=== PATIENT | male | born 1945 | race Caucasian/White ===

== ENCOUNTER 2018-01-24 10:46 | Inpatient (IN) | payer MEDICARE, OTHER ==
[2018-01-13 10:59] VITALS: BMI 29.0
--- NOTE | 2018-01-13 11:45 | PAT Medication Instructions ---
Service Date Jan 13, 2018. Current Home Medication List Allopurinol (Zyloprim), 100 MG PO QPM Ascorbic Acid (Vitamin C), 1 TAB PO QAM Aspirin (Aspirin Ec), 81 MG PO QPM Cholecalciferol (Vitamin D3), 1 TAB PO QAM Multivitamin (Multivitamin), 1 TAB PO QAM Medication Instructions For Your Scheduled Surgery - Hold the following medications the morning of surgery: Ascorbic Acid (Vitamin C), 1 TAB PO QAM Cholecalciferol (Vitamin D3), 1 TAB PO QAM Multivitamin (Multivitamin), 1 TAB PO QAM - Take the following medications as scheduled the night before surgery: Allopurinol (Zyloprim), 100 MG PO QPM Aspirin (Aspirin Ec), 81 MG PO QPM If you have any questions please call us at [phone] or [phone] or [phone]
[2018-01-13 12:29] LABS: BASO % 0.6 %; BASO ABS # 0.04 K/uL (0-0.2); EOS % 5.9 %; EOS ABS # 0.42 K/uL (0-0.5); HEMATOCRIT 41.5 % (42-52); HEMOGLOBIN 14.3 g/dL (14.0-18.0); IG# 0.01 K/uL (0.00-0.02); LYMPH ABS # 1.77 K/uL (1.2-3.4); MEAN CELL VOLUME 94.3 fL (80-100); MEAN CORPUSCULAR HEMOGLOBIN 32.5 pg (25-34); MEAN CORPUSCULAR HGB CONC 34.5 g/dl (32-36); MONO % 11.6 %; MONO ABS # 0.82 K/uL (0.11-0.59); NEUT % 56.8 %; NEUT ABS # 4.03 K/uL (1.4-6.5); PLATELET COUNT 262 K/uL (130-400); RED CELL DISTRIBUTION WIDTH CV 13.9 % (11.5-14.5); RED CELL DISTRIBUTION WIDTH SD 47.9 fL (36.4-46.3); WHITE BLOOD COUNT 7.09 K/uL (4.8-10.8)
[2018-01-13 12:42] LABS: INR 0.9 (0.9-1.1); PTT PATIENT 26.6 SECONDS (21.0-31.0)
[2018-01-13 13:06] LABS: HEMOGLOBIN A1C 6.1 % (4.5-5.6)
[2018-01-13 13:23] LABS: ALBUMIN 3.8 gm/dl (3.4-5.0); CALCIUM 9.7 mg/dl (8.5-10.1); CREATININE 3.94 mg/dl (0.60-1.40); POTASSIUM 4.8 mmol/L (3.5-5.1)
--- NOTE | 2018-01-19 14:18 | HISTORY & PHYSICAL EXAMINATION ---
DATE OF ADMISSION: 01/24/2018 CHIEF COMPLAINT: Right knee pain. HISTORY OF PRESENT ILLNESS: Mr. Johnson is a 72-year-old male who has a multiple year history of right knee pain. Patient had a partial knee replacement [address] Gordon. He has been complaining of increased pain over the last few months. His pain is now 10/10. He has pain with his daily activities. He has limited standing and walking tolerance. Pain is worse with weightbearing. The patient has had injections and bracing without relief. He is now scheduled for conversion to right total knee arthroplasty with Dr. Huntley. PAST MEDICAL HISTORY: Chronic kidney disease stage IV, history of TIA, acid reflux, history of gout. He denies heart disease, diabetes or DVT. PAST SURGICAL HISTORY: Right knee unicompartmental knee replacement and hernia repair. SOCIAL HISTORY: Patient denies alcohol or tobacco use. He lives in a 2-suraj home. He is and retired. FAMILY HISTORY: Negative for DVT. MEDICATIONS: Allopurinol 100 mg t.i.d., aspirin 81 mg daily, vitamin C 1000 mg, multivitamin, vitamin B complex, omega 3, ranitidine 150 mg b.i.d., TUMS 200 mg p.r.n. ALLERGIES: None. REVIEW OF SYSTEMS: See HPI. Ten other systems reviewed, all negative. PHYSICAL EXAMINATION: VITAL SIGNS: Height 5 foot 8, weight 192 pounds, BMI 29. GENERAL: This is a well developed, well nourished male who is alert and oriented x3. Mood and affect are appropriate. HEENT: Normocephalic, atraumatic. Mucous membranes are moist and intact. NECK: Supple without lymphadenopathy. HEART: Regular rate and rhythm without murmurs, rubs or gallops. LUNGS: Clear to auscultation without wheezes or rhonchi. ABDOMEN: Soft and nontender. Bowel sounds are equal and active. EXTREMITIES: No ecchymosis, redness or warmth. He has varus deformity. Range of motion is from 5-110 degrees. He has +2 laxity. He has a mild incision from previous surgery. He is neurovascularly intact with moderate effusion. X-RAY EXAMINATION: AP and lateral views show a unicompartmental knee replacement with likely aseptic loosening. IMPRESSION: Painful right unicompartmental knee replacement. PLAN: The patient will be admitted for a conversion to a right total knee arthroplasty. He is planning on outpatient PT upon discharge. The patient should not have anti-inflammatories due to his chronic kidney disease. He should have a medical consults during his inpatient hospital stay.
[2018-01-24] VITALS (8 sets, daily range): BP systolic 111–160; BP diastolic 72–98; PULSE 74–86; TEMP 36.2–37.1; O2SAT 93–95; Ht 172.7 cm; Wt 85.0 kg
[~2018-01-24] VITALS: Ht 172.7 cm; Wt 85.0 kg
[2018-01-24] MEDS: TRANEXAMIC ACID INJ 1,000 MG x 2 Bags IV SCH ×4 (06:30→12:22)
[~2018-01-24 10:46] MED LIST: ACETAMINOPHEN 500 MG TAB PO SCH; ALLO100T PO; ASCA500 PO; ASPI81TA28 PO; ATROPINE SULFATE 0.1 MG/ML 5ML SYR IV PRN; CEFAZOLIN 2000MG IV PUSH 15 ML IV SCH; CHOL1000 PO; CeleBREX 200 MG CAP PO SCH; DEXAMETHASONE 4 MG TAB PO SCH; EpHEDrine SULFATE INJ 50 MG/ML AMP IV PRN; FAMOTIDINE 20 MG TAB PO SCH; FENTANYL CITRATE INJ 50 MCG/1 ML 2 ML VIAL IV PRN; GABAPENTIN 300 MG CAP PO SCH; HYDROmorphone INJ 0.5 MG/0.5 ML SYR IV PRN; LABETALOL HCL IV 5 MG/ML 20ML IV PRN; MEPERIDINE HCL 25 MG/ML CARP IV PRN; METOCLOPRAMIDE HCL 10 MG TAB PO SCH; MULT-506 PO; ONDANSETRON INJ 2 MG/ML 2 ML VIAL IV PRN; ROPIVACAINE 5MG/ML 30 ML 150 MG, BUPIVACAINE 0.5% MPF INJ 30 ML, EpINEphrine HCL INJ 0.... INFIL SCH; SODIUM CHLORIDE 0.9% 1000ML 1,000 ML IV SCH
[2018-01-24] MEDS ORDERED: LIDOCAINE HCL 2% 2 ML VIAL (20MG/ML) ONE (10:54)
[2018-01-24] MEDS ORDERED: EpHEDrine SULFATE INJ 50 MG/ML AMP ONE (10:54)
[2018-01-24] MEDS ORDERED: PROPOFOL IV EMULSION 10 MG/ML 20 ML VIAL IV ONE ×2 (10:54→14:32)
[2018-01-24] MEDS ORDERED: PHENYLEPHRINE 100MCG/ML 5ML SYR ONE (10:54)
[2018-01-24] MEDS ORDERED: MIDAZOLAM HCL 1 MG/ML 2ML VIAL ONE (10:55)
[2018-01-24] MEDS ORDERED: FENTANYL CITRATE INJ 50 MCG/1 ML 2 ML VIAL ONE (10:55)
--- NOTE | 2018-01-24 11:25 | History & Physical Bridge Note ---
H&P Re-Evaluation Bridge Note: I have examined the patient, reviewed the History & Physical and in the interval since the performance of the History & Physical I have noted the following changes of clinical significance: No changes noted
[2018-01-24] MEDS ORDERED: ROPIVACAINE 0.5% 5 MG/ML 30 ML VIAL ONE (11:53)
[2018-01-24] MEDS ORDERED: BUPIVACAINE 0.5 % 5 MG/1 ML PF 10ML VIAL ONE (11:53)
[2018-01-24] MEDS ORDERED: ORTHO JOINT ANESTHETIC ONE (12:12)
[2018-01-24] MEDS ORDERED: POVIDONE-IODINE OP SOLN 30 ML BTL ONE (12:12)
[2018-01-24] MEDS ORDERED: BACITRACIN 50000 UNIT VIAL ONE (12:12)
[2018-01-24] MEDS ORDERED: ROPIVACAINE 5MG/ML 30 ML 150 MG, BUPIVACAINE 0.5% MPF INJ 30 ML, EpINEphrine HCL INJ 0.... INFIL SCH ×7 (13:00)
--- NOTE | 2018-01-24 14:49 | [facility] Post Operative Brief Note ---
Immediate Operative Summary Operative Date Jan 24, 2018. Pre-Operative Diagnosis Painful Right Unicompartmental Knee Replacement Post-Operative Diagnosis Same as preoperative. Procedure(s) Performed Right Total Knee Arthroplasty; Conversion from Right Uni Compartment Surgeon Dr. Avery Huntley Sales Manager [place] Surgeon(s) Gianfranco Mcnamara PA-C Estimated Blood Loss 10ml Findings Consistent with Post-Op Diagnosis Specimens A.) Right Knee Bone and Tissue B.) Explanted Hardware, Right Knee Anesthesia Type MAC Spinal Regional Complication(s) none Disposition Disposition: Recovery Room / PACU
--- NOTE | 2018-01-24 14:54 | [facility] Operative Report ---
Operative Report Operative Date Jan 24, 2018. Pre-Operative Diagnosis Painful Right Unicompartmental Knee Replacement Post-Operative Diagnosis Same as preoperative. Procedure(s) Performed Right Total Knee Arthroplasty; Conversion from Right Uni Compartment utilizing a Cook nephew hybrid journey femur Legion tibia total knee arthroplasty with size 6 femur journey size 6 tibial lesion with a 16 x 1 20 mm stem set at 830 with a 2 mm offset a 10 mm medial wedge was used Surgeon Dr. Avery Huntley Mechanical Systems Design Engineer Surgeon(s) Gianfranco Mcnamara PA-C Estimated Blood Loss 10ml Findings Patient presents after having had previously undergone approximate 10 years prior by another surgeon a unicompartmental medial compartment knee arthroplasty who had a larger medial resection performed presents for revision from unicompartmental arthroplasty to total knee arthroplasty after developing arthritis in the other 2 compartments of the patient failed other attempts at conservative management for this reason the decision was made for revision of his unicompartmental to total knee arthroplasty Specimens A.) Right Knee Bone and Tissue B.) Explanted Hardware, Right Knee Anesthesia Type MAC Spinal Regional Complication(s) none Disposition Recovery Room / PACU Indications Patient presents after 10 years of unicompartmental knee arthroplasty right knee for revision of right total unicompartmental knee arthroscopy with total knee arthroplasty patient developed compartment arthritis in the lateral compartment patellofemoral compartment as well Description of Procedure After proper prepping draping of the right lower extremity utilizing the previous sruthi-medial incision was used for an anterior approach to the extensor mechanism medial parapatellar incision was subsequently used meticulous hemostasis obtained and maintained at all times patella subluxed lateralward or harm's way the unicompartmental arthroplasty on the femur and tibia was subsequently removed utilizing a series of osteotomes and curettes after removal of the medial compartment arthroplasty intramedullary IM femoral carley guide was placed the distal femoral cut was made anterior chamfer posterior chamfers were made utilizing 5 in 1 cutting block and the femur was sized to a size 6 on the tibial side there is extensive medial cut which would require a wedge and subsequently an intramedullary guide was placed proximal tibia lateral compartment was cut the a 10 mm wedge cut was placed on the medial compartment intramedullary carley 120 mm x 16 was reamed to stabilize the tibial plate required a 10 mm medial wedge 2 mm offset set at 830 gave excellent tibial coverage trials were placed and 9 mm tibial Angelina gave excellent stability in flexion mid flexion and extension was irrigated with copious amounts of sterile saline solution subsequently final components were brought in the field and cemented the following order tibia femur patella the patellar tracking is noted be excellent wound was irrigated with copious amount of sterile saline solution was noted a intra-articular capsular joint cocktail injection without any nonsteroidal tramadol was placed the medial parapatellar incision closed #1 Vicryl subcu was closed with 2-0 Vicryl skin was closed skin clips sterile compression dressing was placed patient was taken recovery in stable condition was operative report dictated by Audi please note Gianfranco HARRIS was necessary for prepping draping retraction wound closure of the fascia subcutaneous tissue and skin was necessary for the case I attest to the content of the Intraoperative Record and any orders documented therein. Any exceptions are noted below.
[2018-01-24] MEDS ORDERED: BISACODYL 10 MG SUPP PR PRN (15:30)
[2018-01-24] MEDS ORDERED: MoRPHine SULFATE 2 MG/ML CARP IV PRN (15:30)
[2018-01-24] MEDS ORDERED: ONDANSETRON INJ 2 MG/ML 2 ML VIAL IV PRN (15:30)
[2018-01-24] MEDS ORDERED: TRAMADOL HCL 50 MG TAB PO PRN (15:30)
[2018-01-24] MEDS ORDERED: ALUMINUM/MAGNESIUM/SIMETH (MAALOX MAX) 30 ML UDC PO PRN (15:30)
[2018-01-24] MEDS ORDERED: MAGNESIUM HYDROXIDE SUSP 30 ML UDC PO PRN (15:30)
[2018-01-24] MEDS ORDERED: CEFAZOLIN IV 2,000 MG in DEXTROSE 5% 50ML 50 ML IV SCH (15:30)
--- NOTE | 2018-01-24 15:46 | DIAGNOSTIC IMAGING REPORT ---
R KNEE 1 OR 2 VIEWS ROUTINE HISTORY: 72 years-old Male AP/LATERAL IN PACU RIGHT KNEE status post right knee total joint arthroplasty. Degenerative joint disease. COMPARISON: None available TECHNIQUE: 2 views of the right knee FINDINGS: Postoperative changes from right knee total joint arthroplasty with patellar resurfacing. Anterior midline skin rakesh are noted along with postsurgical swelling and deep tissue air. Surgical drain is in place. No malalignment, retained foreign body or periprosthetic fracture. Peripheral vascular disease. IMPRESSION: Right knee total joint arthroplasty and patellar resurfacing without complication identified. The above report was generated using voice recognition software. It may contain grammatical, syntax or spelling errors. Electronically signed by: Charly Plunkett M.D. 01/24/2018 3:45 PM Dictated Date/Time: 01/24/2018 3:44 PM
--- NOTE | 2018-01-24 15:53 | Anesthesiology Progress Note ---
Anesthesia Post Op Note Date & Time Jan 24, 2018 at 15:53 Vital Signs Pain Intensity: 0 Vital Signs Past 12 Hours Date Time Temp Pulse Resp B/P (MAP) Pulse Ox O2 Delivery O2 Flow Rate FiO2 01/24/18 15:40 84 18 119/81 95 Oxymask 3 01/24/18 15:30 80 18 117/79 96 Oxymask 3 01/24/18 15:22 36.5 80 20 125/69 97 Oxymask 5 01/24/18 11:14 36.5 84 18 160/98 95 Room Air Notes Mental Status: alert / awake / arousable, participated in evaluation Pt Amnestic to Procedure: Yes Nausea / Vomiting: adequately controlled Pain: adequately controlled Airway Patency, RR, SpO2: stable & adequate BP & HR: stable & adequate Hydration State: stable & adequate Neuraxial Anesthesia: was administered, sensory block is resolving Anesthetic Complications: no major complications apparent
[2018-01-24] MEDS: D5W AND 1/2NSS + 20MEQ KCL 1,000 ML IV SCH (16:56)
[2018-01-24] MEDS: FERROUS GLUCONATE 324 MG TAB PO SCH (17:39)
--- NOTE | 2018-01-24 18:58 | Medical Consult ---
Consultation Date of Consultation: Jan 24, 2018. Attending Physician: Avery Huntley D.O. Reason for Consultation: Medical management History of Present Illness 72 y/o M who was admitted on 01/24 s/p R TKA with Dr. Huntley. Pt is doing well post-op. Tolerating PO without issue. Pt denies fever, SOB, chest pain, abd pain, n/v/c/d, LE swelling. Pt states his usual cr is about 3.5 with a GFR of 14.5. He is not on HD. There is no definite cause of pt's renal disease but he states that the current thought is that due to overuse of excedrin. He apparently used to work at a job for many years when he was younger that caused a lot of headaches and he took this medication roughly 8x/day. Past Medical/Surgical History CKD IV as above GERD Hx of TIA Gout OA Family History Neg for renal disease Social History Smoking Status: Never Smoker Alcohol Use: none Drug Use: none Allergies Coded Allergies: No Known Allergies (Unverified , 01/24/18) Current Inpatient Medications Current Inpatient Medications Medications (Trade) Dose Ordered Sig/Becky Route Start Time Stop Time Status Last Admin Dose Admin Sodium Chloride 1,000 ml @ 15 mls/hr Q24H IV 01/24/18 06:00 01/25/18 05:59 01/24/18 11:44 15 MLS/HR Allopurinol (Zyloprim Tab) 100 mg QPM PO 01/24/18 21:00 02/23/18 20:59 Cholecalciferol (Vitamin D Tab) 1,000 inter.unit QAM PO 01/25/18 09:00 02/24/18 08:59 Morphine Sulfate (MoRPHine SULFATE INJ) 2 mg Q4HWA PRN IV 01/24/18 15:30 02/07/18 15:29 Potassium Chloride/Dextrose/ Sod Cl 1,000 ml @ 100 mls/hr Q10H IV 01/24/18 16:45 01/25/18 16:44 01/24/18 16:56 100 MLS/HR Oxycodone HCl (Roxicodone Immediate Rel Tab) 1 TABLET FOR PAIN RATING... Q4H PRN PO 01/24/18 15:30 02/07/18 15:29 Acetaminophen (Tylenol Tab) 1,000 mg Q8H PO 01/24/18 20:00 02/23/18 19:59 Magnesium Hydroxide (Milk Of Magnesia Susp) 30 ml Q6H PRN PO 01/24/18 15:30 02/23/18 15:29 Bisacodyl (Dulcolax Supp) 10 mg DAILY PRN RI 01/24/18 15:30 02/23/18 15:29 Senna (Senokot Tab) 17.2 mg HS PO 01/24/18 21:00 02/23/18 20:59 Docusate Sodium (coLACE CAP) 100 mg BID PO 01/24/18 21:00 02/23/18 20:59 Al Hydrox/Mg Hydrox/Simethicone (Maalox Max Susp) 15 ml Q4H PRN PO 01/24/18 15:30 02/23/18 15:29 Multivitamins (Multivitamin Tab) 1 tab QAM PO 01/25/18 09:00 02/24/18 08:59 Ondansetron HCl (Zofran Inj) 4 mg Q6H PRN IV 01/24/18 15:30 02/23/18 15:29 Ferrous Gluconate (Ferrous Gluconate Tab) 324 mg TIDM PO 01/24/18 17:45 02/23/18 17:59 01/24/18 17:39 324 MG Tramadol HCl (Ultram Tab) 1 tablet for pain rating... Q4H PRN PO 01/24/18 15:30 02/23/18 15:29 Enoxaparin Sodium (Lovenox Inj) 30 mg QAM SQ 01/25/18 09:00 02/24/18 08:59 Cefazolin Sodium 2000 mg/Syringe 15 ml @ 3.75 mls/ min Q8H IV 01/24/18 20:00 01/25/18 04:03 Review of Systems Pertinent positives and negatives reviewed in HPI--all others negative Physical Exam Date Time Temp Pulse Resp B/P (MAP) Pulse Ox O2 Delivery O2 Flow Rate FiO2 01/24/18 18:02 36.2 85 18 119/79 (92) 95 Room Air 01/24/18 17:00 37.1 84 18 119/78 (92) 95 Nasal Cannula 2.0 01/24/18 16:40 Nasal Cannula 2.0 01/24/18 16:37 93 Nasal Cannula 2.0 01/24/18 16:30 36.5 86 16 133/87 (102) 93 Nasal Cannula 2.0 01/24/18 16:00 82 18 116/87 96 Oxymask 3 01/24/18 16:00 36.5 74 18 117/72 (87) 93 Nasal Cannula 2.0 01/24/18 15:50 36.3 84 18 117/89 95 Oxymask 3 01/24/18 15:40 84 18 119/81 95 Oxymask 3 01/24/18 15:30 80 18 117/79 96 Oxymask 3 01/24/18 15:22 36.5 80 20 125/69 97 Oxymask 5 01/24/18 11:14 36.5 84 18 160/98 95 Room Air General Appearance: WD/WN, no apparent distress Head: normocephalic, atraumatic Eyes: normal inspection, sclerae normal Respiratory/Chest: normal breath sounds, no respiratory distress Cardiovascular: regular rate, rhythm, no edema Abdomen/GI: non tender, soft Extremities/Musculoskelatal: no calf tenderness, no pedal edema Neurologic/Psych: alert, normal mood/affect, oriented x 3 Skin: normal color, warm/dry Assessment & Plan 72 y/o M who was admitted on 01/24 s/p R TKA with Dr. Huntley. R knee pain: s/p TKA DVT proph and diet as per ortho Pre-op Hb 14.3 CKD IV: cr 3.94, no prior labs in our system but states he is usually around 3.5 cr Monitor No hx of DM or HTN
[2018-01-24] MEDS: CEFAZOLIN IV 2,000 MG in SYRINGE 0 ML IV SCH (20:30)
[2018-01-24] MEDS: ACETAMINOPHEN 500 MG TAB PO SCH (20:31)
[2018-01-24] MEDS: DOCUSATE SODIUM 100 MG CAP PO SCH (20:32)
[2018-01-24] MEDS ORDERED: SENNA 8.6 MG TAB PO SCH (21:00)
[2018-01-24] MEDS ORDERED: ALLOPURINOL 100 MG TAB PO SCH (21:00)
[2018-01-25] MEDS: D5W AND 1/2NSS + 20MEQ KCL 1,000 ML IV SCH ×2 (02:32→12:27)
[2018-01-25 04:05] VITALS: BP 104/67; PULSE 69; TEMP 36.3; O2SAT 93
[2018-01-25] MEDS: ACETAMINOPHEN 500 MG TAB PO SCH ×2 (04:31→11:58)
[2018-01-25] MEDS: CEFAZOLIN IV 2,000 MG in SYRINGE 0 ML IV SCH (04:32)
[2018-01-25 07:59] LABS: HEMATOCRIT 34.2 % (42-52); HEMOGLOBIN 11.6 g/dL (14.0-18.0); MEAN CELL VOLUME 92.9 fL (80-100); MEAN CORPUSCULAR HEMOGLOBIN 31.5 pg (25-34); MEAN CORPUSCULAR HGB CONC 33.9 g/dl (32-36); PLATELET COUNT 228 K/uL (130-400); RED CELL DISTRIBUTION WIDTH CV 13.9 % (11.5-14.5); RED CELL DISTRIBUTION WIDTH SD 47.2 fL (36.4-46.3); WHITE BLOOD COUNT 13.33 K/uL (4.8-10.8)
[2018-01-25 08:24] LABS: CALCIUM 8.5 mg/dl (8.5-10.1); CREATININE 4.11 mg/dl (0.60-1.40); POTASSIUM 4.4 mmol/L (3.5-5.1)
[2018-01-25 08:33] VITALS: BP 113/72; PULSE 72; TEMP 36.4; O2SAT 94
[2018-01-25] MEDS: FERROUS GLUCONATE 324 MG TAB PO SCH ×2 (08:57→12:27)
[2018-01-25] MEDS: DOCUSATE SODIUM 100 MG CAP PO SCH (08:57)
[2018-01-25] MEDS: OXYCODONE HCL IR 5 MG TAB (IMMEDIATE RELEASE) PO PRN ×2 (08:59→14:36)
[2018-01-25] MEDS ORDERED: MULTIVITAMIN TAB PO SCH ×2 (09:00)
[2018-01-25] MEDS ORDERED: CHOLECALCIFEROL 1000 INTER.UNIT TAB PO SCH (09:00)
[2018-01-25] MEDS ORDERED: ENOXAPARIN 30 MG/0.3 ML SYR SQ SCH (09:00)
--- NOTE | 2018-01-25 09:11 | Orthopedic Progress Note ---
Orthopedic Progress Note Date of Service Jan 25, 2018. Subjective Post OP Day: 1 Reports: feeling well, pain controlled w PO medications, Denies: complaints, chest pain, SOB, nausea / vomiting, light headedness, calf pain Objective calves soft nontender, N/V intact, capillary refill less than 2 sec., dressing C /D/I, A&O x3, toes mobile, hemovac drainage (150cc/8 hours) Date Time Temp Pulse Resp B/P (MAP) Pulse Ox O2 Delivery O2 Flow Rate FiO2 01/25/18 08:33 36.4 72 18 113/72 (86) 94 Room Air 01/25/18 08:00 Room Air 01/25/18 04:05 36.3 69 16 104/67 (79) 93 Room Air 01/25/18 00:00 Room Air 01/24/18 23:50 36.3 84 16 111/73 (86) 93 Room Air 01/24/18 19:00 36.4 83 18 121/80 (94) 93 Nasal Cannula 2.0 01/24/18 18:02 36.2 85 18 119/79 (92) 95 Room Air 01/24/18 17:00 37.1 84 18 119/78 (92) 95 Nasal Cannula 2.0 01/24/18 16:40 Nasal Cannula 2.0 01/24/18 16:37 93 Nasal Cannula 2.0 01/24/18 16:30 36.5 86 16 133/87 (102) 93 Nasal Cannula 2.0 01/24/18 16:00 82 18 116/87 96 Oxymask 3 01/24/18 16:00 36.5 74 18 117/72 (87) 93 Nasal Cannula 2.0 01/24/18 15:50 36.3 84 18 117/89 95 Oxymask 3 01/24/18 15:40 84 18 119/81 95 Oxymask 3 01/24/18 15:30 80 18 117/79 96 Oxymask 3 01/24/18 15:22 36.5 80 20 125/69 97 Oxymask 5 01/24/18 11:14 36.5 84 18 160/98 95 Room Air Laboratory Results 24 Hours: Test 01/25/18 07:44 Hematocrit 34.2 % Hemoglobin 11.6 g/dL Assessment & Plan Assessment: POD #1 s/p Right Total Knee Arthroplasty; Conversion from Right Uni Compartment pt/ot dvt proph with karuna/scd/lovenox; considering d/c with PO dvt proph plan for d/c home with self PT for 2 weeks then transition to OPPT Chronic kidney disease stage IV history of TIA acid reflux history of gout Discharge Planning Discharge Planning: home DVT Prophylaxis: TEDs, SCDs Therapy: Physical Therapy
--- NOTE | 2018-01-25 09:13 | Discharge Instructions ---
Discharge Instructions Date of Service Jan 25, 2018. Admission Reason for Admission: Right Knee Osteoarthritis Discharge Discharge Diagnosis / Problem: conversion from unicompartment knee to a total knee replacement Discharge Goals Goal(s): Decrease discomfort, Improve function, Increase independence Activity Recommendations Activity Limitations: as noted below Weightbearing Status: Right weightbearing (as tolerated) . Instructions / Follow-Up Instructions / Follow-Up ACTIVITY RECOMMENDATIONS: SELF CARE INSTRUCTIONS AFTER TOTAL KNEE REPLACEMENT A. You may need to continue a physical therapy program after discharge from the hospital. There are several options available to you. Your doctor will assist you in selecting the best one for you. 1. An out-patient facility 2 to 3 times a week for therapy or home therapy. 2. Continue working on all exercises taught to you in the hospital. Your goals should be to increase bending of your knee to 90 degrees and beyond and to fully straighten your knee. B. You may progress at your own pace from walking with a walker or crutches to a cane; then to no assistive devices. C. Make walking a part of your daily routine. Be up as much as comfortable with rest periods throughout the day. Rest with leg elevation is very important. Use the ice wrap frequently for the first 3-4 weeks. D. There are no restrictions on activities. You may ride in a car, shop, participate in systems lead and all social activities. E. Wear the long elastic stockings (JESE hose) 20 hours a day for 2 weeks after surgery. They can be removed several times a day for laundering and for a bath. F. You may shower, no tub baths until cleared by your doctor. SPECIAL CARE INSTRUCTIONS: VERY IMPORTANT TO READ AND REVIEW A. There are a few signs you need to watch for after you are home. Call [facility] if you notice any of the followin. Increased severe knee pain. Some pain is expected especially when you exercise. 2. Increased swelling in your leg or knee; pain or swelling of the calf muscle in either lower leg. 3. Any fluid drainage from the incision. 4. Shortness of breath or chest pain. B. Please call [facility] at if you have any concerns or questions about your operation or recovery. The doctor or his nurse will return your call promptly. C. You must take antibiotics before dental work, bladder, bowel or other surgery. Your doctor will provide you with a permanent care to carry describing this precaution. IMPORTANT: * REMEMBER TO TAKE ASPIRIN, 81 MG, TWICE DAILY FOR 4 WEEKS UNLESS OTHERWISE DIRECTED. THIS IS YOUR BLOOD THINNER. * HIGH RISK PATIENTS MAY BE PRESCRIBED A STRONGER BLOOD THINNER. THIS WILL BE PROVIDED AT DISCHARGE. * CALL IF INCREASED PAIN, REDNESS, DRAINAGE OR FEVER GREATER THAT 101. * WEAR JESE HOSE 20 HOURS PER DAY FOR 2 WEEKS. * YOU MAY HAVE A LARGE BAND-AID LIKE DRESSING (SILVERON). THIS WILL REMAIN ON YOUR INCISION FOR 7 DAYS, THEN CAN BE REMOVED. IF INCISION IS LEAKING THROUGH DRESSING, CALL THE OFFICE . FOLLOW UP VISIT: If appointment is not already scheduled: Please call [facility] to make a follow-up appointment for 2 weeks after your surgery at . Current Hospital Diet Patient's current hospital diet: Regular Diet Discharge Diet Recommended Diet: Regular Diet Procedures Procedures Performed: Right Total Knee Arthroplasty; Conversion from Right Uni Compartment utilizing a Cook nephew hybrid journey femur Legion tibia total knee arthroplasty with size 6 femur journey size 6 tibial lesion with a 16 x 1 20 mm stem set at 830 with a 2 mm offset a 10 mm medial wedge was used Pending Studies Studies pending at discharge: no Laboratory Results Hemoglobin A1c Test 01/13/18 11:59 Range/Units Estimated Average Glucose 128 mg/dl Hemoglobin A1c 6.1 H 4.5-5.6 % Medical Emergencies . Who to Call and When: Medical Emergencies: If at any time you feel your situation is an emergency, please call 911 immediately. . Non-Emergent Contact Non-Emergency issues call your: Primary Care Provider, Surgeon . "Provider Documentation" section prepared by Brennan Card. . [place] Drug Monitoring Program Search Results: patient reviewed within database, no issues identified
[2018-01-25] MEDS ORDERED: DEXTROSE 50% 50 ML SYR IV PRN (09:15)
[2018-01-25] MEDS ORDERED: GLUCOSE 40% GEL 15 GM TUBE PO PRN (09:15)
[2018-01-25] MEDS ORDERED: GLUCOSE 10 TABS/TUBE PO PRN (09:15)
[2018-01-25] MEDS ORDERED: GLUCAGON FOR INJ 1 MG VIAL SQ PRN (09:15)
[2018-01-25 10:38] VITALS: BP 94/56
[2018-01-25] MEDS ORDERED: CLC100 PO (11:48)
[2018-01-25] MEDS ORDERED: LVNIS30 SQ (11:48)
[2018-01-25] MEDS ORDERED: ACET-24 PO (11:48)
[2018-01-25] MEDS ORDERED: ONDA-170 PO (11:48)
[2018-01-25] MEDS ORDERED: RXC5 PO (11:48)
[2018-01-25] MEDS ORDERED: INSULIN ASPART 100 UNITS/ML 3 ML PEN SC SCH (12:00)
[2018-01-25 12:09] VITALS: BP 108/64; PULSE 79; TEMP 36.3; O2SAT 96
[2018-01-25 15:54] VITALS: BP 119/76; PULSE 70; TEMP 36.7; O2SAT 98
[2018-01-25 15:58] VITALS: BP 119/76; PULSE 70; TEMP 36.7; O2SAT 98
--- NOTE | 2018-01-25 16:23 | Hospitalist Progress Note ---
Hospitalist Progress Note Date of Service Jan 25, 2018. (Cee Garcia ., RIKKIC) Subjective Pt evaluation today including: conversation w/ patient, conversation w/ family (at bedside), physical exam, chart review, lab review, review of inpatient medication list PO Intake: Tolerating PO diet Voiding: no voiding problems Patient reports feeling well postop. He states his knee pain is well managed and he did well with PT/OT. He is eating well, urinating and passing gas without issues postop. He has not yet had a bowel movement. He denies any complaints. The patient denies fevers, chills, sweats, chest pain, palpitations , claudication, cough, wheezing, shortness of breath, nausea, vomiting, abdominal pain, dysuria, hematuria, urinary retention, paralysis, weakness, numbness and tingling. Additional Comments: See HPI for pertinent positives and negatives. All other systems reviewed and negative. (Cee Garcia ., PA-C) Objective Vital Signs Date Time Temp Pulse Resp B/P (MAP) Pulse Ox O2 Delivery O2 Flow Rate FiO2 01/25/18 15:58 36.7 70 16 98 Room Air 01/25/18 15:54 36.7 70 16 119/76 (90) 98 Room Air 01/25/18 12:09 36.3 79 18 108/64 (79) 96 Room Air 01/25/18 08:33 36.4 72 18 113/72 (86) 94 Room Air 01/25/18 08:00 Room Air 01/25/18 04:05 36.3 69 16 104/67 (79) 93 Room Air 01/25/18 00:00 Room Air 01/24/18 23:50 36.3 84 16 111/73 (86) 93 Room Air 01/24/18 19:00 36.4 83 18 121/80 (94) 93 Nasal Cannula 2.0 01/24/18 18:02 36.2 85 18 119/79 (92) 95 Room Air 01/24/18 17:00 37.1 84 18 119/78 (92) 95 Nasal Cannula 2.0 01/24/18 16:40 Nasal Cannula 2.0 01/24/18 16:37 93 Nasal Cannula 2.0 01/24/18 16:30 36.5 86 16 133/87 (102) 93 Nasal Cannula 2.0 (Cee Garcia PA-C) Physical Exam Notes: General appearance: Well-developed, well-nourished, no apparent distress Head: Normocephalic, atraumatic Eyes: Normal inspection, PERRL, EOMI ENT: Normal ENT inspection, hearing grossly normal, pharynx normal Neck: Supple, no JVD, trachea midline Respiratory/Chest: Lungs clear to auscultation, normal breath sounds, no respiratory distress Cardiovascular: Regular rate & rhythm, no gallop, no murmur Abdomen/GI: Normal bowel sounds, non-tender, soft Extremities/Musculoskeletal: +RLE wrapped in hong bandage, hemovac in place. No calf tenderness, no pedal edema Neurological/Psych: Alert, normal mood/affect, oriented x 3 Skin: Normal color, warm/dry, no rash (Cee Garcia, STEVEN-C) Laboratory Results Last 24 Hours Test 01/25/18 07:44 White Blood Count 13.33 K/uL Red Blood Count 3.68 M/uL Hemoglobin 11.6 g/dL Hematocrit 34.2 % Mean Corpuscular Volume 92.9 fL Mean Corpuscular Hemoglobin 31.5 pg Mean Corpuscular Hemoglobin Concent 33.9 g/dl RDW Standard Deviation 47.2 fL RDW Coefficient of Variation 13.9 % Platelet Count 228 K/uL Mean Platelet Volume 10.0 fL Sodium Level 135 mmol/L Potassium Level 4.4 mmol/L Chloride Level 108 mmol/L Carbon Dioxide Level 17 mmol/L Anion Gap 10.0 mmol/L Blood Urea Nitrogen 54 mg/dl Creatinine 4.11 mg/dl Est Creatinine Clear Calc Drug Dose 17.0 ml/min Estimated GFR () 15.6 Estimated GFR (Non- 13.5 BUN/Creatinine Ratio 13.1 Random Glucose 213 mg/dl Calcium Level 8.5 mg/dl (Cee Garcia PA-C) Assessment and Plan 72 y/o male with a history of CKD stage V not on dialysis, h/o TIA, gout, and GERD who presents s/p right TKA with Dr. Huntley on 01/24 for medical management S/p right TKA--POD #1 -Pain management, DVT prophylaxis, and PT/OT as per primary team -Lovenox for DVT ppx per primary -AVSS MYRIAM on CKD stage V--pt follows w/product development carpenter Dr. Sandoval in [place]. Per pt, his CKD has been relatively stable for the last 12 years and his product development carpenter is holding off dialysis -Pt states baseline creatinine is around 3.2 -Creatinine 4.11 on 01/25 -Receiving IVF -Pt states he has scheduled follow up with product development carpenter in next 1-2 weeks and will also see PCP in the next week to repeat blood work H/o TIA -Continue ASA when ok with surgery, being d/c'd with Lovenox Gout -Continue allopurinol 100 mg PO qd Prediabetes--HgbA1c 6.1 here -Insulin sliding scale -Check BSGs q ac and qhs -Received decadron perioperatively, will not need insulin at home. PCP can monitor prediabetes Pt. is stable from a medical standpoint, we will sign off. Clear for discharge as per primary team. (Cee Garcia ., TALON) Reviewed: Pt Seen/Exam by Me (Rae Marie MD) History Physician Brush Holder Inspector supervision Note: I interviewed and examined the patient. Discussed with STEVEN Garcia and agree with findings and plan as documented in the note. Any exceptions or clarifications are listed here: Patient feeling very well. Pain is controlled, denies chest pain or shortness of breath. He is making a good amount of urine. He reports his baseline creatinine is usually around 3.5, and that his family doctor's nurse already called him and said that they would get him in for close follow-up to repeat his blood work soon after he is discharged. Blood pressures have been acceptable, electrolytes are also within normal limits with the exception of his bicarbonate being a bit low at 17. He has received IV fluids throughout the day and is tolerating p.o. He will have close follow-up with blood work within 1 week. Vitals reviewed Gen: AAOx3, NAD HEENT: anicteric sclerae, EOMI CV: RRR no mgr nl S1S2 Pulm: CTAB no wcr Abd: +BS soft NT ND no masses or hernias Ext: no edema, right lower extremity in large Hong wrap with ice pack in place, wrapped not removed Skin: no rashes, warm/dry Patient is a 72-year-old male with history of CKD stage IV-V not on dialysis,h/ o TIA, gout, and GERD who is now postop day #1 s/p right TKA. -CKD stage IV-V-he reports his baseline creatinine is 3.5, however blood work from 2 weeks ago shows a creatinine of 3.9. Today it is 4.1 he is not far off from a few weeks ago. His bicarbonate is mildly low at 17 which is likely due to his slightly worsened renal failure and perhaps on the basis of a mild dehydration-he did receive IV fluids throughout the day and is now making a good amount of urine. He will have close follow-up with PCP, repeat blood work , and nephrology in the near future. His blood pressures are acceptable. -His Lovenox is appropriately renally dosed for DVT prophylaxis, as is his allopurinol. -Stable for discharge to home Documented By: Rea Marie (Rae Marie MD)
--- NOTE | 2018-01-27 23:02 | DISCHARGE SUMMARY ---
DISCHARGE DIAGNOSIS: Degenerative joint disease, right knee. SECONDARY DIAGNOSES: Chronic kidney disease stage IV, history of transient ischemic attack, gastroesophageal reflux disease, gout. CONSULTS: Cassie Higgins DO COMPLICATIONS: None. PROCEDURES: Right total knee arthroplasty performed by Dr. Huntley on 01/24/2018. BRIEF HISTORY: As dictated in history and physical. HOSPITAL SUMMARY: The patient was admitted on the above date and had the above known surgery performed, which he tolerated well. [facility] service was consulted to follow the patient during his stay. On his first postoperative day, he was feeling well and pain was controlled. Calves were soft, nontender and neurovascularly intact. Dressings clean, dry and intact. Toes are mobile. Vital signs were stable and patient was afebrile. Hemoglobin was 11.6. He was started on physical therapy protocol and continued on DVT prophylaxis and pain management with his chronic kidney disease, creatinine initially preoperatively was 3.9 and on first postoperative, 4.1. The patient was seen by medicine service on the first postoperative day and it was felt that he was stable for discharge and to follow up with his primary care physician after discharge to monitor his kidney function as well as possible prediabetes. He was progressing well with his physical therapy and in PT, he had ambulated 400 feet and had achieved 100 degrees of flexion of his knee, was progressing well and it was felt he could be discharged to home. For further review, please see chart. LAB AND X-RAY DATA: As per chart. DISCHARGE INSTRUCTIONS: The patient was discharged home in satisfactory condition on 01/25/2018. Diet: Regular. Activity: Weightbearing as tolerated, right lower extremity. Follow TK instruction sheets and special care instructions as noted. Follow up with Dr. Huntley in 2 weeks. DISCHARGE MEDICATIONS: Acetaminophen 1000 mg p.o. q. 8 hours, Colace 100 mg p.o. b.i.d., enoxaparin 30 mg subQ q. a.m. for 12 days, Zofran 8 mg p.o. q. 8 hours p.r.n. nausea, oxycodone 5-10 mg p.o. q. 4 hours p.r.n. Resume home meds as listed and stop taking aspirin.
== END 2018-01-25 16:45 | disposition home or self-care (01) | DRG 470 ==
LOC: C.ACU 10:46 → C.MSW 12:43 → ENRESERV 15:49
PROVIDERS: ADMIT Orthopaedic Surgery; ATTEND Orthopaedic Surgery
PROC: 0SRC0J9 Replacement of Right Knee Joint with Synthetic Substitute, Cemented, Open Approach (ICD-10-PCS; principal; 2018-01-24 12:45)
DX: M17.11 Unilateral primary osteoarthritis, right knee (principal); T84.84XA Pain due to internal orthopedic prosthetic devices, implants and grafts, initial encounter; N18.4 Chronic kidney disease, stage 4 (severe); K21.9 Gastro-esophageal reflux disease without esophagitis; Z96.651 Presence of right artificial knee joint; M10.9 Gout, unspecified; Z79.82 Long term (current) use of aspirin; Z86.73 Personal history of transient ischemic attack (TIA), and cerebral infarction without residual deficits; Y79.2 Prosthetic and other implants, materials and accessory orthopedic devices associated with adverse incidents